=== PATIENT | male | born 1995 | race Caucasian/White ===

== ENCOUNTER 2023-03-29 06:55 | Day surgery (SDC) | payer BC ==
[2023-03-29] MEDS ORDERED: ceFAZolin 2 GM VIAL ONE (07:07)
[2023-03-29] MEDS ORDERED: LACTATED RINGERS 1,000 ML IV ONE ×3 (07:10→10:58)
[2023-03-29] MEDS ORDERED: BACITRACIN ZINC OINT 1 PACKET TOP ONE (07:15)
[2023-03-29] MEDS ORDERED: LIDOCAINE-MPF 1% 30 ML VIAL ONE (07:15)
[2023-03-29] MEDS ORDERED: LIDOCAINE-MPF 1% 2 ML AMP SUBQ ONE ×2 (08:15)
[2023-03-29] MEDS ORDERED: BACITRACIN ZINC OINT 14 GM TOP ONE (08:16)
[2023-03-29] MEDS ORDERED: PROPOFOL 200 MG/20 ML VIAL IVP ONE ×2 (08:32→09:03)
[2023-03-29] MEDS ORDERED: fentaNYL 100 MCG/2 ML VIAL ONE ×2 (08:32→10:02)
[2023-03-29] MEDS ORDERED: MIDAZOLAM 2 MG/2 ML VIAL ONE (08:32)
[2023-03-29] MEDS ORDERED: LIDOCAINE-PF 2% 10 ML AMP SUBQ ONE (08:32)
[2023-03-29] MEDS ORDERED: ONDANSETRON 4 MG/2 ML VIAL ONE ×2 (08:32→10:21)
[2023-03-29] MEDS ORDERED: ONDANSETRON 4 MG/2 ML VIAL IVP PRN ×2 (09:03→09:32)
[2023-03-29] MEDS ORDERED: HYDROmorphone 0.5 MG/0.5 ML SYRINGE IVP PRN (09:03)
[2023-03-29] MEDS ORDERED: ATROPINE ABBOJECT 1 MG/10 ML SYRINGE IVP PRN (09:03)
[2023-03-29] MEDS ORDERED: ePHEDrine 50 MG/ML VIAL IVP PRN (09:03)
[2023-03-29] MEDS ORDERED: NALOXONE 0.4 MG/ML VIAL IVP PRN (09:03)
[2023-03-29] MEDS ORDERED: METOCLOPRAMIDE 10 MG/2 ML VIAL IVP PRN (09:03)
[2023-03-29] MEDS ORDERED: MORPHINE 2 MG/ML CARPUJECT IVP PRN (09:03)
[2023-03-29] MEDS ORDERED: fentaNYL 100 MCG/2 ML VIAL IVP PRN (09:03)
--- NOTE | 2023-03-29 09:03 | ANESTHESIA ---
Pre-Anesthesia VS, & Labs - Diagnosis phimosis - Procedure circumcision Vital Signs: Temp Pulse Resp BP Pulse Ox O2 Flow Rate 36.9 C 66 16 132/91 H 99 03/29/23 07:10 03/29/23 07:10 03/29/23 07:10 03/29/23 07:10 03/29/23 07:10 Height: 6 ft 3 in Weight (kg): 123 kg Body Mass Index: 33.9 BMI Classification: Obese - NPO >8 hours Home Medications and Allergies Home Medications: Ambulatory Orders No Known Home Medications 03/25/23 No Known Home Medications 03/25/23 Allergies/Adverse Reactions: Allergies Allergy/AdvReac Type Severity Reaction Status Date / Time No Known Drug Allergies Allergy Verified 03/25/23 10:49 Anes History & Medical History - Anesthetic History Anesthesia Complications: reports: No previous complications Family history of Anesthesia Complications: Denies Family history of Malignant Hyperthermia: Denies - Medical History Cardiovascular: reports: Hypertension, High cholesterol Pulmonary: reports: None Gastrointestinal: reports: None Urinary: reports: None Musculoskeletal: reports: None Endocrine/Autoimmune: reports: None Skin: reports: None - Surgical History Orthopedic: reports: Other Exam General: Alert, Oriented x3, Cooperative Dental: WNL, Other (chipped front incisor) Mouth Openin Fingerbreadth Neck Mobility: Normal Mallampati classification: II Thyromental Distance: 4-6 cm (elias) Respiratory: Lungs clear Cardiovascular: Regular rate Plan Anesthesia Type: General Consent for Procedure(s) Verified and Reviewed: Yes Code Status: Attempt Resuscitation ASA classification: 2-Mild systemic disease Is this case an emergency?: No
[2023-03-29] MEDS ORDERED: HYDROcod/ACETAM 5/325 MG TABLET PO PRN (09:32)
--- NOTE | 2023-03-29 09:39 | OPERATIVE REPORT ---
Operative Report - General Procedure Date: 03/29/23 Planned Procedure: circumcision Pre-Op Diagnosis: phimosis Procedure Performed: circumcision Post Op Diagnosis: same - Procedure Note Primary Surgeon: Ben Anesthesia Provider: GRISELDA Louise Anesthesia Technique: General LMA Pathology: foreskin Estimated Blood Loss (mL): 10 Indications: Phimosis Findings: Normal circumcision Complications: none - Other Other Information/Narrative: After informed consent was obtained the patient was brought to the OR and laid in the supine position. At that point time the patient was anesthetized per anesthesia protocols and prepped and draped in usual sterile fashion. A formal timeout was performed reconfirming the patient, procedure. He was noted to have a phimotic foreskin. 1% lidocaine was used as a ring block and as a penis block. His glans was marked out. Using sharp dissection the skin on the external surface was incised. We then pulled the glans through his 5 myotic foreskin and reprepped the area with Betadine. A 1 cm cuff was marked out around the glans. This was then incised using sharp dissection. The intervening skin was clamped and 4 areas and cut away using a combination of electrocautery and blunt dissection. Spot cautery was used for any bleeding areas on the shaft of the penis. The area was irrigated copiously with saline. The skin edges were then reapproximated using combination of simple interrupted and running 4-0 chromic sutures. He was noted to have a 5 mm frenular tear which was closed using running 5-0 chromic suture. The incision was then dressed using bacitracin cream, Xeroform and then a gauze wrap. This concluded the procedure and the patient tolerated the procedure well. He was brought to PACU without further incident. He will follow-up in 6 weeks time. All counts were correct.
--- NOTE | 2023-03-29 09:39 | Discharge Plan ---
Discharge Plan Problem Reviewed?: Yes Disposition: Home, Self Care Condition: Good Prescriptions: Docusate Sodium 100Mg Capsule [Colace 100Mg Capsule] 100 mg PO DAILY #7 cap HYDROcod/ACETAM 5/325 [[place] 5/325] 1 tab PO Q4H PRN #10 tablet PRN Reason: Pain Activity Restrictions: No Restrictions Shower Restrictions: No Driving Restrictions: No Instruction Topics: Circumcision Adult No Smoking: If you smoke, Please STOP! Call for help. Follow-up with: Mendel Contreras MD [Provider Admit Priv/Credential] -
[2023-03-29] MEDS ORDERED: LACTATED RINGERS 1,000 ML IV SCH (10:00)
[2023-03-29 10:59] VITALS: O2SAT 100
[2023-03-29] MEDS ORDERED: HYDROcod/ACETAM 5/325 MG TABLET ONE (11:08)
[2023-03-29 11:47] VITALS: BP 118/67
--- NOTE | 2023-03-29 15:54 | ANESTHESIA POST OP EVALUATION ---
Anesthesia Post Eval - Post Anesthesia Eval Vitals: Last Vital Signs Temp 36.3 C L 03/29/23 11:20 Pulse 60 03/29/23 11:20 Resp 16 03/29/23 11:20 BP 118/67 03/29/23 11:20 Pulse Ox 100 03/29/23 11:20 O2 Flow Rate CV Function Including HR & BP: Stable Pain Control: Satisfactory Nausea & Vomiting: Negative Mental Status: Baseline Respiratory Status: Airway Patent Hydration Status: Satisfactory Anesthesia Complications: None
== END 2023-03-29 06:56 | disposition home or self-care (01) ==
LOC: SDS 06:55
PROVIDERS: ATTEND Urology
PROC: 0VTTXZZ Resection of Prepuce, External Approach (ICD-10-PCS; principal; 2023-03-29 08:15)
DX: N47.6 Balanoposthitis (principal); N47.1 Phimosis; E66.9 Obesity, unspecified; Z68.33 Body mass index [BMI] 33.0-33.9, adult; I10 Essential (primary) hypertension; Z86.19 Personal history of other infectious and parasitic diseases
CPT/HCPCS: 54161; A9270; J7120

== ENCOUNTER 2023-05-28 12:43 | Outpatient (CLI) | payer BC ==
[2023-05-28 20:01] LABS: BASOPHILS # (AUTO) 0.1 10^3/uL (0.0-0.1); BASOPHILS % (AUTO) 1.1 %; EOSINOPHILS # (AUTO) 0.1 10^3/uL (0.0-0.7); EOSINOPHILS % (AUTO) 1.7 %; HCT - HEMATOCRIT 45.7 % (42.0-52.0); HGB - HEMOGLOBIN 14.2 g/dL (14.0-18.0); LYMPHOCYTES # (AUTO) 2.8 10^3/uL (1.5-3.5); MEAN CORPUSCULAR HEMOGLOBIN 28.1 pg (27.0-31.0); MEAN CORPUSCULAR HGB CONC 31.1 g/dL (32.0-36.0); MEAN CORPUSCULAR VOLUME 90.5 fL (80.0-94.0); MEAN PLATELET VOLUME 10.2 fL (7.4-11.4); MONOCYTES # (AUTO) 0.6 10^3/uL (0.0-1.0); NEUTROPHILS # (AUTO) 2.9 10^3/uL (1.5-6.6); PLT - PLATELET COUNT 248 10^3/uL (130-450); RED BLOOD COUNT 5.05 10^6/uL (4.70-6.10); RED CELL DISTRIBUTION WIDTH 13.4 % (12.0-15.0); WHITE BLOOD COUNT 6.5 x10^3/uL (4.8-10.8)
[2023-05-28 20:20] LABS: ALBUMIN 4.5 g/dL (3.2-5.5); ALBUMIN/GLOBULIN RATIO 1.7 (1.0-2.2); BILIRUBIN,TOTAL 0.7 mg/dL (0.2-1.0); CALCIUM 9.6 mg/dL (8.5-10.3); CREATININE 0.8 mg/dL (0.6-1.3); POTASSIUM 4.2 mmol/L (3.5-4.5); TOTAL PROTEIN 7.1 g/dL (6.4-8.9)
[2023-05-28 20:34] LABS: THYROID STIMULATING HORMONE 1.72 uIU/mL (0.34-5.60)
== END 2023-05-28 12:44 | disposition home or self-care (01) ==
LOC: LAB.S 12:43
PROVIDERS: ATTEND Physician Assistant Medical
DX: Z00.00 Encounter for general adult medical examination without abnormal findings (principal)
CPT/HCPCS: 36415; 80053; 84443; 85025